=== PATIENT | male | born 1955 | race Caucasian/White ===

== ENCOUNTER 2018-08-22 02:10 | Emergency (ER) | payer OTHER ==
[2018-08-22] MEDS ORDERED: Sodium Bicarbonate 8.4%* 50 ML SYRINGE ONE (02:12)
[2018-08-22] MEDS ORDERED: EPINEPHrine SYR 0.1MG/ML* SYRINGE ONE (02:12)
[2018-08-22 02:30] VITALS: BP 0/0
--- NOTE | 2018-08-22 02:42 | ED ---
HPI Cardiac - HPI Summary HPI Summary: Patient is a 62 y/o M presenting to ED via ambulance for cardiac arrest. ABC alert called at 0209, patient arrived at this time, ED physician in room immediately to evaluate. EMS reports that they received call at 0111 for witnessed cardiac arrest. Upon arrival, patient was reported to have unreactive pupils, no pulse, no breath sounds. Police attempted x3 AED shock, EMS attempted x3 AED shock, seven rounds of epi given, narcan x2, chest compressions were being done by EMS upon patient arrival. EMS had established 18 gauge. In room, ACLS protocol performed, patient was placed on monitor, intubated, given bicarb, epi. Family arrived shortly after, states that patient had got up, gone to the bathroom. After he returned, he lied down and started snoring heavily. Family states that patient only has Hx of HTN, BPH reports FMHx of [place]. - History of Current Complaint Stated Complaint: ABC ALERT Hx Obtained From: Family/Railcar Brake Operator, EMS Hx From Patient Unobtainable Due To: Other - cardiac arrest Onset/Duration: Started Hours Ago, Still Present Timing: Constant, Lasting Hours Initial Severity: Severe Current Severity: Severe Aggravating Factor(s): Nothing Alleviating Factor(s): Nothing Associated Signs and Symptoms: Positive: Other: - cardiac arrest - Allergy/Home Medications Allergies/Adverse Reactions: Allergies Allergy/AdvReac Type Severity Reaction Status Date / Time No Known Allergies Allergy Verified 03/02/13 13:24 PMH/Surg Hx/FS Hx/Imm Hx Endocrine/Hematology History: Denies: Hx Diabetes, Hx Thyroid Disease Cardiovascular History: Reports: Hx Hypertension Respiratory History: Denies: Hx Asthma, Hx Chronic Obstructive Pulmonary Disease (COPD) GI History: Denies: Hx Ulcer Musculoskeletal History: Denies: Hx Rheumatoid Arthritis, Hx Osteoporosis - Surgical History Surgery Procedure, Year, and Place: LEFT knee surgery 12-13 years ago; meniscus repair (Dr. Colon) Infectious Disease History: Denies: Hx Hepatitis, Hx Human Immunodeficiency Virus (HIV), Traveled Outside the [place] in Last 30 Days - Family History Known Family History: Positive: Cardiac Disease - [place] - Social History Alcohol Use: Rare Substance Use Type: Reports: None Smoking Status (MU): Never Smoked Tobacco Review of Systems - ROS Summary Review of Systems Summary: level 5 caveat, cardiac arrest Positive: Other - unresponsive Positive: Other - cardiac arrest All Other Systems Reviewed And Are Negative: No - Comments Additional Review of Systems Comments: level 5 caveat, cardiac arrest Physical Exam - Summary Physical Exam Summary: VITAL SIGNS: Reviewed. GENERAL: Patient is a well-developed and morbidly obese male HEAD AND FACE: No signs of trauma. No ecchymosis, hematomas or skull depressions. No sinus tenderness. EYES: Pupils fixed, dilated, and not reactive. EARS: Ear canals and tympanic membranes are within normal limits. CHEST: Symmetric, no tenderness at palpation LUNGS: No breath sounds CVS: Asystole NEURO: Unresponsive SKIN: Cold Triage Information Reviewed: Yes Vital Signs On Initial Exam: Initial Vitals Temp Pulse Resp BP Pulse Ox 0 F 0 0 0/0 0 08/22/18 02:10 08/22/18 02:10 08/22/18 02:10 08/22/18 02:10 08/22/18 02:10 Vital Signs Reviewed: Yes Procedures - Intubation Time of Intubation: 02:13 Intubation Method: orotracheal Tube Size (cm): 8.0 Breath Sounds after Intubation: equal Intubation Complications: no complications Post Intubation Xray: No Re-Evaluation - Re-Evaluation First Eval Re-Evaluation Time: 03:20 Change: Unchanged Comment: cigarette examiner Isabella Cardoso was contacted, she states [place] [facility] [place]. Disposition - Course Course Of Treatment: Patient is a 62 y/o M presenting to ED via ambulance for cardiac arrest. ABC alert called at 0209, patient arrived at this time, ED physician in room immediately to evaluate. EMS reports that they received call at 0111 for witnessed cardiac arrest. Upon arrival, patient was reported to have unreactive pupils, no pulse, no breath sounds. Police attempted x3 AED shock, EMS attempted x3 AED shock, seven rounds of epi given, narcan x2, chest compressions were being done by EMS upon patient arrival. EMS had established 18 gauge. In room, ACLS protocol performed, patient was placed on monitor, intubated, given bicarb, epi. Family arrived shortly after, states that patient had got up, gone to the bathroom. After he returned, he lied down and started snoring heavily. Family states that patient only has Hx of HTN, BPH reports FMHx of [place]. On physical exam, patient is noted to be morbidly obese, pale and cold. Pupils dilated and fixed, not reactive. No breath sounds, asystole. Patient remained asystole for 17 minutes. He was pronounced at 0226. cigarette examiner Isabella Cardoso was contacted, she states [place] [facility] [place] the [place]. - Diagnoses Provider Diagnoses: Cardiac arrest During the Visit The Following Alert/Code Occurred: ABC Alert - 0209 Discharge - Sign-Out/Discharge Documenting (check all that apply): [place] Departure - [place] [facility] [place] Condition: Disposition: Referrals: Rickey DEL CASTILLO,Reynold Ellison [Primary Care Provider] - - Attestation Statements Document Initiated by Scribe: Yes Documenting Scribe: FLORINDA QUINTANA Provider For Whom Scribe is Documenting (Include Credential): GEOVANNA VIVAR MD Scribe Attestation: IFLORINDA , scribed for GEOVANNA VIVAR MD on 08/22/18 at 0501. Status of Scribe Document: Ready
== END 2018-08-22 02:26 | disposition expired ==
LOC: ED 02:10
DX: I46.9 Cardiac arrest, cause unspecified (principal)
CPT/HCPCS: 31500; 99285; J0171